=== PATIENT | female | born 1980 | race Caucasian/White ===

== ENCOUNTER → 2018-08-29 | Outpatient (REF) | payer OTHER ==
[2018-08-29 17:12] LABS: BLOOD UREA NITROGEN 9 MG/DL (7-18); CALCIUM LEVEL 9.3 MG/DL (8.5-10.1); CARBON DIOXIDE LEVEL 25 MEQ/L (21-32); CHLORIDE LEVEL 110 MEQ/L (98-107); CREATININE FOR GFR 0.95 MG/DL (0.55-1.30); GLOMERULAR FILTRATION RATE > 60.0 (>60); GLUCOSE, FASTING 86 MG/DL (70-100); POTASSIUM SERUM 4.2 MEQ/L (3.5-5.1); SODIUM LEVEL 140 MEQ/L (136-145); THYROID STIMULATING HORMONE 0.872 uIU/ML (0.358-3.740)
== END ==
LOC: M SFHCCLAY 12:08
PROVIDERS: ATTEND Family Medicine
DX: I10 Essential (primary) hypertension (principal); E03.9 Hypothyroidism, unspecified

== ENCOUNTER → 2022-02-26 | Outpatient (REF) | payer OTHER ==
[2022-02-26 17:33] LABS: HEMATOCRIT 33.1 % (36.0-47.0); HEMOGLOBIN 9.5 g/dl (12.0-15.5); MEAN CORPUSCULAR HEMOGLOBIN 21.6 pg (27.0-33.0); MEAN CORPUSCULAR HGB CONC 28.7 g/dl (32.0-36.5); MEAN CORPUSCULAR VOLUME 75.2 fl (80.0-96.0); PLATELET COUNT, AUTOMATED 298 10^3/uL (150-450); WHITE BLOOD COUNT 10.4 10^3/uL (4.0-10.0)
[2022-02-26 17:53] LABS: HEMOGLOBIN A1c 5.4 % (4.0-6.0)
[2022-02-26 18:01] LABS: ALBUMIN 3.6 G/DL (3.2-5.2); ALKALINE PHOSPHATASE 69 U/L (46-116); ALT/SGPT 23 U/L (7.0-40); AST/SGOT 20 U/L (<34); BILIRUBIN,TOTAL 0.2 MG/DL (0.3-1.2); BLOOD UREA NITROGEN 11 MG/DL (9-23); CALCIUM LEVEL 9.2 MG/DL (8.5-10.1); CARBON DIOXIDE LEVEL 22 MMOL/L (20-31); CHLORIDE LEVEL 107 MMOL/L (98-107); CHOLESTEROL LEVEL 249 MG/DL (<200); GLOMERULAR FILTRATION RATE > 60.0 (>60); GLUCOSE, FASTING 87 MG/DL (60-100); HDL CHOLESTEROL 39.5 MG/DL (>40); LDL CHOLESTEROL 175.3 MG/DL (<100); NON-HDL-C 210 MG/DL; POTASSIUM SERUM 4.3 MMOL/L (3.5-5.1); SODIUM LEVEL 139 MMOL/L (136-145); TRIGLYCERIDES LEVEL 171 MG/DL (<150)
[2022-02-26 18:07] LABS: THYROID STIMULATING HORMONE 4.498 uIU/ML (0.55-4.78)
[2022-02-26 18:08] LABS: FREE T4 1.17 NG/DL (0.89-1.76)
== END ==
LOC: M SFHCCLAY 11:13
PROVIDERS: ATTEND Nurse Practitioner Family
DX: F32.2 Major depressive disorder, single episode, severe without psychotic features (principal); E03.9 Hypothyroidism, unspecified; E78.5 Hyperlipidemia, unspecified; K21.9 Gastro-esophageal reflux disease without esophagitis; G43.109 Migraine with aura, not intractable, without status migrainosus; R73.01 Impaired fasting glucose; R04.0 Epistaxis; Z79.01 Long term (current) use of anticoagulants

== ENCOUNTER → 2022-04-16 | Outpatient (REF) | payer OTHER ==
[2022-04-16 13:54] LABS: BASO # 0.1 10^3/uL (0.0-0.2); BASO % 0.8 % (0.0-1.0); EOS # 0.3 10^3/uL (0.0-0.5); EOS % 2.5 % (0.0-3.0); HEMATOCRIT 33.4 % (36.0-47.0); HEMOGLOBIN 9.4 g/dl (12.0-15.5); LYMPH # 2.3 10^3/uL (1.5-5.0); LYMPH % 22.3 % (24.0-44.0); MEAN CORPUSCULAR HEMOGLOBIN 21.4 pg (27.0-33.0); MEAN CORPUSCULAR HGB CONC 28.1 g/dl (32.0-36.5); MEAN CORPUSCULAR VOLUME 75.9 fl (80.0-96.0); MONO # 0.7 10^3/uL (0.0-0.8); MONO % 7.1 % (2.0-8.0); NEUTROPHILS # 6.8 10^3/uL (1.5-8.5); NEUTROPHILS % 66.5 % (36.0-66.0); PLATELET COUNT, AUTOMATED 256 10^3/uL (150-450); WHITE BLOOD COUNT 10.1 10^3/uL (4.0-10.0)
[2022-04-16 14:23] LABS: FERRITIN 1.7 NG/ML (7.3-270.7)
[2022-04-16 14:24] LABS: PERCENT SATURATION 7.5 % (13.2-45.0)
[2022-04-16 14:25] LABS: FOLATE 16.18 NG/ML (>5.4)
== END ==
LOC: M SFHCCLAY 11:40
PROVIDERS: ATTEND Nurse Practitioner Family
DX: D64.9 Anemia, unspecified (principal)

== ENCOUNTER → 2022-04-22 | Outpatient (CLI) | payer OTHER | LOC: M SOG 08:08 | PROVIDERS: ATTEND Orthopaedic Surgery | DX: M54.50 Low back pain, unspecified (principal) ==

== ENCOUNTER 2022-04-27 09:34 | Outpatient (CLI) | payer OTHER ==
[~2022-04-27] VITALS: Ht 172.7 cm; Wt 120.0 kg
[2022-04-27 09:45] VITALS: BP 146/91
[2022-04-27] MEDS ORDERED: IRON SUCROSE 25 MG in NS 23.75 ML IV ONE (10:30)
[2022-04-27] MEDS ORDERED: IRON SUCROSE 475 MG in NS 250 ML IV ONE (11:45)
[2022-04-27 13:20] VITALS: BP 140/85
[2022-04-27 14:40] VITALS: BP 141/88
[2022-04-27 16:20] VITALS: BP 147/90
== END 2022-04-27 16:20 | disposition home or self-care (01) ==
LOC: M INFU 09:34
PROVIDERS: ATTEND Nurse Practitioner Family
DX: D50.9 Iron deficiency anemia, unspecified (principal)
CPT/HCPCS: 96365; 96366; J1756

== ENCOUNTER → 2022-05-06 | Outpatient (REF) | payer OTHER ==
[2022-05-06 17:32] LABS: BASO # 0.1 10^3/uL (0.0-0.2); BASO % 0.7 % (0.0-1.0); EOS # 0.2 10^3/uL (0.0-0.5); EOS % 1.7 % (0.0-3.0); HEMATOCRIT 37.8 % (36.0-47.0); LYMPH # 2.4 10^3/uL (1.5-5.0); LYMPH % 20.5 % (24.0-44.0); MEAN CORPUSCULAR HEMOGLOBIN 23.3 pg (27.0-33.0); MEAN CORPUSCULAR HGB CONC 29.1 g/dl (32.0-36.5); MEAN CORPUSCULAR VOLUME 79.9 fl (80.0-96.0); MONO # 0.7 10^3/uL (0.0-0.8); MONO % 6.1 % (2.0-8.0); NEUTROPHILS # 8.1 10^3/uL (1.5-8.5); NEUTROPHILS % 69.8 % (36.0-66.0); PLATELET COUNT, AUTOMATED 193 10^3/uL (150-450); RED BLOOD COUNT 4.73 10^6/uL (4.00-5.40); WHITE BLOOD COUNT 11.6 10^3/uL (4.0-10.0)
[2022-05-06 17:41] LABS: FERRITIN 41.8 NG/ML (7.3-270.7)
== END ==
LOC: M SFHCCLAY 09:31
PROVIDERS: ATTEND Nurse Practitioner Family
DX: D50.9 Iron deficiency anemia, unspecified (principal)

== ENCOUNTER → 2022-07-16 | Outpatient (REF) | payer OTHER ==
[2022-07-16 17:39] LABS: BASO # 0.1 10^3/uL (0.0-0.2); BASO % 0.8 % (0.0-1.0); EOS # 0.2 10^3/uL (0.0-0.5); EOS % 2.5 % (0.0-3.0); HEMATOCRIT 38.5 % (36.0-47.0); HEMOGLOBIN 11.5 g/dl (12.0-15.5); LYMPH # 2.1 10^3/uL (1.5-5.0); LYMPH % 25.6 % (24.0-44.0); MEAN CORPUSCULAR HEMOGLOBIN 25.7 pg (27.0-33.0); MEAN CORPUSCULAR HGB CONC 29.9 g/dl (32.0-36.5); MEAN CORPUSCULAR VOLUME 85.9 fl (80.0-96.0); MONO # 0.6 10^3/uL (0.0-0.8); MONO % 7.7 % (2.0-8.0); NEUTROPHILS # 5.3 10^3/uL (1.5-8.5); NEUTROPHILS % 62.8 % (36.0-66.0); PLATELET COUNT, AUTOMATED 249 10^3/uL (150-450); RED BLOOD COUNT 4.48 10^6/uL (4.00-5.40); WHITE BLOOD COUNT 8.4 10^3/uL (4.0-10.0)
[2022-07-16 18:01] LABS: FERRITIN 4.3 NG/ML (7.3-270.7); PERCENT SATURATION 7.4 % (13.2-45.0)
== END ==
LOC: M SFHCCLAY 11:21
PROVIDERS: ATTEND Nurse Practitioner Family
DX: D50.9 Iron deficiency anemia, unspecified (principal)

== ENCOUNTER → 2022-07-20 | Outpatient (CLI) | payer OTHER | LOC: M PLAIMG 08:30 | PROVIDERS: ATTEND Orthopaedic Surgery | DX: M54.50 Low back pain, unspecified (principal) ==

== ENCOUNTER 2022-07-30 10:03 | Outpatient (CLI) | payer OTHER ==
[~2022-07-30] VITALS: Ht 172.7 cm; Wt 98.5 kg
[2022-07-30 10:10] VITALS: BP 132/72
[2022-07-30 10:30] VITALS: BP 134/77
[2022-07-30] MEDS ORDERED: IRON SUCROSE 500 MG in NS 250 ML OVER 4 HRS IV ONE (10:30)
[2022-07-30 11:30] VITALS: BP 147/65
[2022-07-30 11:45] VITALS: BP 140/83
[2022-07-30 14:50] VITALS: BP 162/88
== END 2022-07-30 15:10 | disposition home or self-care (01) ==
LOC: M INFU 10:03
PROVIDERS: ATTEND Nurse Practitioner Family
DX: D50.9 Iron deficiency anemia, unspecified (principal)
CPT/HCPCS: 96365; 96366; J1756

== ENCOUNTER → 2022-12-24 | Outpatient (CLI) | payer OTHER ==
[~2022-12-24] MED LIST: ATEN25TA; CHLO125TA; CITA40TA7; CYAN-1; CYCL-707; FERR324T2; LEVO100T5; OMEP-173; SIMV40TA20; SUMA100T2; TIZA10TA; TOPI200T7; VITMTA PO; ZANA2CAP PO
== END ==
LOC: M WHC 08:09
PROVIDERS: ATTEND Nurse Practitioner Family
DX: Z12.31 Encounter for screening mammogram for malignant neoplasm of breast (principal)

== ENCOUNTER → 2023-01-19 | Outpatient (REF) | payer OTHER | LOC: M SFHCCLAY 10:17 | PROVIDERS: ATTEND Nurse Practitioner Family | DX: R05.1 Acute cough (principal) ==

== ENCOUNTER → 2023-02-17 | Outpatient (REF) | payer OTHER | LOC: M SFHCCLAY 10:52 | PROVIDERS: ATTEND Nurse Practitioner Family | DX: R05.1 Acute cough (principal) ==

== ENCOUNTER 2023-06-14 09:57 | Outpatient (CLI) | payer OTHER ==
[~2023-06-14] VITALS: Ht 172.7 cm; Wt 118.2 kg
[2023-06-14] MEDS ORDERED: diphenhydrAMINE 25MG CAP PO ONE (10:00)
[2023-06-14 10:15] VITALS: BP 131/70; O2SAT 97
[2023-06-14] MEDS: ACETAMINOPHEN TAB 650MG DOSE (2X325MG) PO ONE (10:20)
[2023-06-14] MEDS: IRON SUCROSE 300 MG in NS 250 ML OVER 90 MIN. IV ONE (10:21)
[2023-06-14 12:00] VITALS: BP 119/74; O2SAT 100
== END 2023-06-14 12:00 | disposition home or self-care (01) ==
LOC: M INFU 09:57
PROVIDERS: ATTEND Internal Medicine Medical Oncology
DX: D50.9 Iron deficiency anemia, unspecified (principal)
CPT/HCPCS: 96365; 96366; J1756

== ENCOUNTER 2023-06-21 09:30 | Outpatient (CLI) | payer OTHER ==
[~2023-06-21] VITALS: Ht 175.3 cm; Wt 125.0 kg
[2023-06-21] MEDS: ACETAMINOPHEN TAB 650MG DOSE (2X325MG) PO ONE (09:39)
[2023-06-21] MEDS: diphenhydrAMINE 25MG CAP PO ONE (09:39)
[2023-06-21] MEDS: IRON SUCROSE 300 MG in NS 250 ML OVER 90 MIN. IV ONE (09:40)
[2023-06-21 09:47] VITALS: BP 141/92; O2SAT 96
[2023-06-21 11:20] VITALS: BP 129/89; O2SAT 97
== END 2023-06-21 11:20 | disposition home or self-care (01) ==
LOC: M INFU 09:30
PROVIDERS: ATTEND Internal Medicine Medical Oncology
DX: D50.9 Iron deficiency anemia, unspecified (principal)
CPT/HCPCS: 96365; J1756

== ENCOUNTER 2023-06-28 10:40 | Outpatient (CLI) | payer OTHER ==
[~2023-06-28] VITALS: Ht 172.7 cm; Wt 125.0 kg
[2023-06-28 10:40] VITALS: BP 133/79; O2SAT 97
[~2023-06-28 10:40] MED LIST changes: +diphenhydrAMINE 25MG CAP PO ONE
[2023-06-28] MEDS: ACETAMINOPHEN TAB 650MG DOSE (2X325MG) PO ONE (10:44)
[2023-06-28] MEDS: IRON SUCROSE 300 MG in NS 250 ML OVER 90 MIN. IV ONE (10:49)
[2023-06-28 12:25] VITALS: BP 120/78; O2SAT 99
== END 2023-06-28 12:35 | disposition home or self-care (01) ==
LOC: M INFU 10:40
PROVIDERS: ATTEND Internal Medicine Medical Oncology
DX: D50.9 Iron deficiency anemia, unspecified (principal)
CPT/HCPCS: 96365; 96366; J1756

== ENCOUNTER → 2023-08-31 | Outpatient (CLI) | payer OTHER ==
[~2023-08-31] MED LIST changes: -diphenhydrAMINE 25MG CAP PO ONE
== END ==
LOC: M WHC 09:52
PROVIDERS: ATTEND Nurse Practitioner Family
DX: R10.2 Pelvic and perineal pain (principal)

== ENCOUNTER → 2024-01-03 | Outpatient (CLI) | payer OTHER | LOC: M WHC 08:17 | PROVIDERS: ATTEND Nurse Practitioner Family | DX: Z12.31 Encounter for screening mammogram for malignant neoplasm of breast (principal); R92.313 Mammographic fatty tissue density, bilateral breasts ==

== ENCOUNTER → 2024-01-05 | Outpatient (REF) | payer OTHER, MEDICAID ==
[2024-01-05 19:13] LABS: BASO # 0.1 10^3/uL (0.0-0.2); BASO % 0.7 % (0.0-1.0); EOS # 0.2 10^3/uL (0.0-0.5); EOS % 2.2 % (0.0-3.0); HEMATOCRIT 43.6 % (36.0-47.0); HEMOGLOBIN 14.1 g/dl (12.0-15.5); LYMPH # 2.9 10^3/uL (1.5-5.0); LYMPH % 28.1 % (24.0-44.0); MEAN CORPUSCULAR HEMOGLOBIN 30.4 pg (27.0-33.0); MEAN CORPUSCULAR HGB CONC 32.3 g/dl (32.0-36.5); MONO # 0.9 10^3/uL (0.0-0.8); MONO % 8.4 % (2.0-8.0); NEUTROPHILS # 6.3 10^3/uL (1.5-8.5); NEUTROPHILS % 60.2 % (36.0-66.0); PLATELET COUNT, AUTOMATED 260 10^3/uL (150-450); RED BLOOD COUNT 4.64 10^6/uL (4.00-5.40); WHITE BLOOD COUNT 10.5 10^3/uL (4.0-10.0)
[2024-01-05 19:21] LABS: HEMOGLOBIN A1c 5.3 % (4.0-6.0)
[2024-01-05 19:42] LABS: ALKALINE PHOSPHATASE 77 U/L (46-116); ALT/SGPT 35 U/L (7.0-40); AST/SGOT 13 U/L (<34); BILIRUBIN,TOTAL 0.3 MG/DL (0.3-1.2); BLOOD UREA NITROGEN 7 MG/DL (9-23); CALCIUM LEVEL 10.6 MG/DL (8.5-10.1); CARBON DIOXIDE LEVEL 28 MMOL/L (20-31); CHLORIDE LEVEL 108 MMOL/L (98-107); CHOLESTEROL LEVEL 288 MG/DL (<200); CHOLESTEROL RISK RATIO 6.92 (<5); CREATININE FOR GFR 0.69 MG/DL (0.55-1.30); GLOMERULAR FILTRATION RATE > 60.0 (>58); GLUCOSE, FASTING 81 MG/DL (60-100); HDL CHOLESTEROL 41.6 MG/DL (>40); IRON (FE) 33 UG/DL (50-170); LDL CHOLESTEROL 178.2 MG/DL (<100); NON-HDL-C 246.4 MG/DL; PERCENT SATURATION 10.7 % (13.2-45.0); POTASSIUM SERUM 4.8 MMOL/L (3.5-5.1); SODIUM LEVEL 139 MMOL/L (136-145); TOTAL IRON BINDING CAPACITY 307 UG/DL (250-425); TOTAL PROTEIN 7.3 G/DL (5.7-8.2); TRIGLYCERIDES LEVEL 341 MG/DL (<150)
[2024-01-05 19:43] LABS: FERRITIN 6.9 NG/ML (7.3-270.7); FREE T4 0.99 NG/DL (0.89-1.76); THYROID STIMULATING HORMONE 7.052 uIU/ML (0.55-4.78)
[2024-01-05 19:44] LABS: FOLATE 14.06 NG/ML (>5.4); VITAMIN B12 LEVEL 609 PG/ML (211-911)
== END ==
LOC: M SFHCCLAY 12:04
PROVIDERS: ATTEND Nurse Practitioner Family
DX: E03.9 Hypothyroidism, unspecified (principal); D50.9 Iron deficiency anemia, unspecified; I11.9 Hypertensive heart disease without heart failure; E53.8 Deficiency of other specified B group vitamins

== ENCOUNTER → 2024-05-09 | Outpatient (REF) | payer OTHER, MEDICAID ==
[2024-05-09 17:13] LABS: HEMATOCRIT 41.2 % (36.0-47.0); HEMOGLOBIN 12.7 g/dl (12.0-15.5); MEAN CORPUSCULAR HEMOGLOBIN 27.6 pg (27.0-33.0); MEAN CORPUSCULAR HGB CONC 30.8 g/dl (32.0-36.5); MEAN CORPUSCULAR VOLUME 89.6 fl (80.0-96.0); PLATELET COUNT, AUTOMATED 256 10^3/uL (150-450); WHITE BLOOD COUNT 8.6 10^3/uL (4.0-10.0)
[2024-05-09 17:18] LABS: ALBUMIN 3.9 G/DL (3.2-5.2); ALKALINE PHOSPHATASE 74 U/L (35-104); ALT/SGPT 28 U/L (7.0-40); AST/SGOT 19 U/L (<34); BILIRUBIN,TOTAL 0.2 MG/DL (0.3-1.2); BLOOD UREA NITROGEN 9 MG/DL (9-23); CALCIUM LEVEL 9.2 MG/DL (8.5-10.1); CARBON DIOXIDE LEVEL 25 MMOL/L (20-31); CHLORIDE LEVEL 108 MMOL/L (98-107); CHOLESTEROL LEVEL 213 MG/DL (<200); CHOLESTEROL RISK RATIO 5.77 (<5); CREATININE FOR GFR 0.79 MG/DL (0.55-1.30); GLOMERULAR FILTRATION RATE > 60.0 (>58); GLUCOSE, FASTING 112 MG/DL (60-100); HDL CHOLESTEROL 36.9 MG/DL (>40); IRON (FE) 45 UG/DL (50-170); LDL CHOLESTEROL 96.7 MG/DL (<100); NON-HDL-C 176.1 MG/DL; PERCENT SATURATION 17.4 % (13.2-45.0); POTASSIUM SERUM 3.7 MMOL/L (3.5-5.1); SODIUM LEVEL 141 MMOL/L (136-145); TOTAL IRON BINDING CAPACITY 258 UG/DL (250-425); TOTAL PROTEIN 7.1 G/DL (5.7-8.2); TRIGLYCERIDES LEVEL 397 MG/DL (<150)
[2024-05-09 17:22] LABS: FERRITIN 39.7 NG/ML (7.3-270.7); VITAMIN B12 LEVEL 1101 PG/ML (211-911)
== END ==
LOC: M SFHCCLAY 09:04
PROVIDERS: ATTEND Nurse Practitioner Family
DX: F32.2 Major depressive disorder, single episode, severe without psychotic features (principal); D50.9 Iron deficiency anemia, unspecified; E78.5 Hyperlipidemia, unspecified

== ENCOUNTER → 2024-07-16 | Outpatient (REF) | payer MEDICAID, OTHER ==
[~2024-07-16] MED LIST changes: -ATEN25TA; +ATEN25TA PO; -CHLO125TA; +CHLO125TA PO; -CITA40TA7; +CITA40TA7 PO; -CYAN-1; +CYAN-1 PO; -CYCL-707; +CYCL-707 PO; -LEVO100T5; +LEVO100T5 PO; -OMEP-173; +OMEP-173 PO; -SIMV40TA20; +SIMV40TA20 PO; -SUMA100T2; +SUMA100T2 PO; +TOPI-14 PO; -TOPI200T7
== END ==
LOC: M SFHCWAGY 09:56
PROVIDERS: ATTEND Obstetrics & Gynecology
DX: N93.9 Abnormal uterine and vaginal bleeding, unspecified (principal)

== ENCOUNTER → 2024-07-18 | Outpatient (REF) | payer MEDICAID, OTHER ==
[2024-07-18 12:44] LABS: BASO # 0.1 10^3/uL (0.0-0.2); BASO % 0.7 % (0.0-1.0); EOS # 0.2 10^3/uL (0.0-0.5); EOS % 1.8 % (0.0-3.0); HEMATOCRIT 44.8 % (36.0-47.0); HEMOGLOBIN 14.4 g/dl (12.0-15.5); LYMPH # 2.5 10^3/uL (1.5-5.0); LYMPH % 28.3 % (24.0-44.0); MEAN CORPUSCULAR HEMOGLOBIN 29.1 pg (27.0-33.0); MEAN CORPUSCULAR HGB CONC 32.1 g/dl (32.0-36.5); MEAN CORPUSCULAR VOLUME 90.7 fl (80.0-96.0); MONO # 0.6 10^3/uL (0.0-0.8); MONO % 6.7 % (2.0-8.0); NEUTROPHILS # 5.6 10^3/uL (1.5-8.5); NEUTROPHILS % 62.1 % (36.0-66.0); PLATELET COUNT, AUTOMATED 280 10^3/uL (150-450); RED BLOOD COUNT 4.94 10^6/uL (4.00-5.40)
[2024-07-18 12:48] LABS: THYROID STIMULATING HORMONE 3.083 uIU/ML (0.55-4.78)
[2024-07-18 12:51] LABS: FERRITIN 15.8 NG/ML (7.3-270.7)
[2024-07-18 12:52] LABS: ALBUMIN 4.1 G/DL (3.2-5.2); ALKALINE PHOSPHATASE 71 U/L (35-104); ALT/SGPT 39 U/L (7.0-40); AST/SGOT 19 U/L (<34); BILIRUBIN,TOTAL 0.2 MG/DL (0.3-1.2); BLOOD UREA NITROGEN 9 MG/DL (9-23); CARBON DIOXIDE LEVEL 26 MMOL/L (20-31); CHLORIDE LEVEL 109 MMOL/L (98-107); CHOLESTEROL LEVEL 312 MG/DL (<200); CHOLESTEROL RISK RATIO 9.23 (<5); CREATININE FOR GFR 0.79 MG/DL (0.55-1.30); GLOMERULAR FILTRATION RATE > 90.0 (>58); GLUCOSE, FASTING 115 MG/DL (60-100); HDL CHOLESTEROL 33.8 MG/DL (>40); IRON (FE) 52 UG/DL (50-170); NON-HDL-C 278.2 MG/DL; PERCENT SATURATION 20.2 % (13.2-45.0); POTASSIUM SERUM 3.6 MMOL/L (3.5-5.1); SODIUM LEVEL 144 MMOL/L (136-145); TOTAL IRON BINDING CAPACITY 257 UG/DL (250-425); TOTAL PROTEIN 7.3 G/DL (5.7-8.2); TRIGLYCERIDES LEVEL 498 MG/DL (<150)
== END ==
LOC: M SFHCCLAY 09:33
PROVIDERS: ATTEND Nurse Practitioner Family
DX: Z01.818 Encounter for other preprocedural examination (principal); F32.2 Major depressive disorder, single episode, severe without psychotic features; G43.109 Migraine with aura, not intractable, without status migrainosus; E03.9 Hypothyroidism, unspecified; K21.9 Gastro-esophageal reflux disease without esophagitis; I11.9 Hypertensive heart disease without heart failure; D50.9 Iron deficiency anemia, unspecified; N93.9 Abnormal uterine and vaginal bleeding, unspecified; E78.5 Hyperlipidemia, unspecified

== ENCOUNTER 2024-07-27 06:16 | Day surgery (SDC) | payer OTHER ==
[~2024-07-27] VITALS: Ht 172.7 cm; Wt 119.0 kg
[~2024-07-27 06:16] MED LIST changes: +ceFAZolin SOD 3 GM in DEXTROSE 5% (D5W) MINI-BAG PLU 1... IV ONE
[2024-07-27] MEDS ORDERED: LR 1,000 ML IV SCH (06:25)
[2024-07-27 06:45] LABS: HEMATOCRIT 43.3 % (36.0-47.0); HEMOGLOBIN 14.1 g/dl (12.0-15.5); MEAN CORPUSCULAR HEMOGLOBIN 29.2 pg (27.0-33.0); MEAN CORPUSCULAR HGB CONC 32.6 g/dl (32.0-36.5); MEAN CORPUSCULAR VOLUME 89.6 fl (80.0-96.0); PLATELET COUNT, AUTOMATED 307 10^3/uL (150-450); RED BLOOD COUNT 4.83 10^6/uL (4.00-5.40); WHITE BLOOD COUNT 10.9 10^3/uL (4.0-10.0)
[2024-07-27] MEDS ORDERED: ACETAMINOPHEN 1000MG/100ML IV BAG As Ordered ONE (06:46)
[2024-07-27] MEDS ORDERED: LIDOCAINE 2% 100MG/5ML SDV (FOR ANES.) As Ordered ONE (06:46)
[2024-07-27] MEDS ORDERED: propofoL 200 MG/20 ML VIAL As Ordered ONE (06:46)
[2024-07-27] MEDS ORDERED: ONDANSETRON 4MG 2ML VIAL As Ordered ONE (06:46)
[2024-07-27] MEDS ORDERED: ROCURONIUM BROMIDE 50MG/5ML VIAL As Ordered ONE (06:47)
[2024-07-27] MEDS ORDERED: SUGAMMADEX SODIUM 500 MG/5 ML VIAL As Ordered ONE (06:47)
[2024-07-27] MEDS ORDERED: KETOROLAC 30 MG/ML 1ML VIAL As Ordered ONE (06:52)
[2024-07-27] MEDS ORDERED: fentaNYL 100 MCG/2 ML INJECTION As Ordered ONE (06:52)
[2024-07-27] MEDS ORDERED: MIDAZOLAM INJ 2MG/2ML VIAL As Ordered ONE (06:52)
[2024-07-27] MEDS ORDERED: HYDROmorphone HCL 2MG/ML 1ML VIAL As Ordered ONE (06:54)
[2024-07-27] MEDS: ceFAZolin 1GM VIAL As Ordered ONE (07:53)
[2024-07-27] MEDS: ceFAZolin SOD 2 GM IV ONCE IV ONE (07:56)
[2024-07-27] MEDS ORDERED: ALBUTEROL 6.7GM INHALER **FOR ANES. CART/OMNICELL ONLY As Ordered ONE (08:06)
[2024-07-27] MEDS ORDERED: GLYCOPYRROLATE INJ 0.2 MG/ML 2 ML VIAL As Ordered ONE (08:23)
[2024-07-27] MEDS ORDERED: PHENYLephrine 500MCG 5ML (100MCG/ML) SYRINGE As Ordered ONE (08:28)
[2024-07-27] MEDS ORDERED: ePHEDrine SULFATE 25 MG/5 ML(5MG/ML) SYRINGE As Ordered ONE (08:28)
[2024-07-27] MEDS: METHYLENE BLUE 0.5% (5MG/ML) 10 ML AMP As Ordered ONE (08:43)
[2024-07-27] MEDS ORDERED: PERCOCET 5MG/325MG TAB PO PRN ×2 (09:40)
[2024-07-27] MEDS ORDERED: ONDANSETRON 4MG 2ML VIAL IV PRN (09:40)
[2024-07-27] MEDS: LR 1,000 ML IV SCH ×2 (09:40→09:50)
[2024-07-27] MEDS ORDERED: MORPHINE 4 MG/ML 1ML VIAL IV PRN (09:40)
[2024-07-27] MEDS ORDERED: PERC5TAB12 PO (09:50)
[2024-07-27] MEDS ORDERED: fentaNYL 100 MCG/2 ML INJECTION IV PRN (09:50)
[2024-07-27] MEDS ORDERED: METOCLOPRAMIDE INJ 10MG/2ML VIAL IV PRN (09:50)
[2024-07-27] MEDS ORDERED: HYDROMORPHONE HCL 0.5 MG/ 0.5 ML SYRINGE IV PRN (09:50)
[2024-07-27] MEDS ORDERED: oxyCODONE 5MG TAB PO PRN (09:50)
[2024-07-27] MEDS ORDERED: IBUP80TA PO (09:52)
[2024-07-27] MEDS ORDERED: COLA100C5 PO (09:52)
[2024-07-27] MEDS ORDERED: ONDA-83 PO (09:53)
[2024-07-27 11:15] VITALS: BP 114/58; TEMP 98; O2SAT 95
[2024-07-27 11:45] VITALS: BP 125/67; TEMP 98.4; O2SAT 96
[2024-07-27 12:15] VITALS: BP 114/61; TEMP 98.6; O2SAT 97
[2024-07-27 13:15] VITALS: BP 113/66; TEMP 98.7; O2SAT 98
[2024-07-27 14:15] VITALS: BP 120/73; TEMP 98.5; O2SAT 97
[2024-07-27] MEDS: KETOROLAC 30 MG/ML 1ML VIAL IV SCH (15:00)
[2024-07-27] MEDS ORDERED: HOME MED LIST COMPLETE! XX SCH (15:10)
[2024-07-27] MEDS ORDERED: DOCUSATE SODIUM 100MG CAPSULE PO SCH (21:00)
[2024-07-28] MEDS ORDERED: IBUPROFEN 800 MG TAB PO SCH (23:00)
== END 2024-07-27 15:00 | disposition home or self-care (01) ==
LOC: M SDC 06:16 → M PED 11:12 → M SDC 15:00
PROVIDERS: ATTEND Obstetrics & Gynecology
DX: N93.9 Abnormal uterine and vaginal bleeding, unspecified (principal); I10 Essential (primary) hypertension; E03.9 Hypothyroidism, unspecified; E78.00 Pure hypercholesterolemia, unspecified; D50.9 Iron deficiency anemia, unspecified; G47.30 Sleep apnea, unspecified; Z98.51 Tubal ligation status; F17.210 Nicotine dependence, cigarettes, uncomplicated; Z79.899 Other long term (current) drug therapy; Z79.890 Hormone replacement therapy; K21.9 Gastro-esophageal reflux disease without esophagitis
CPT/HCPCS: 36415; 58571; 81025; 85027; 86850; 86900; 86901; 88307; J0131; J0665; J0690; J1100; J1171; J1596; J1885; J2250; J2371; J2405; J3010; Q9968; S2900

== ENCOUNTER → 2024-10-02 | Outpatient (REF) | payer OTHER, MEDICAID ==
[~2024-10-02] MED LIST changes: +COLA100C5 PO; +IBUP80TA PO; +ONDA-83 PO; +PERC5TAB12 PO; -ceFAZolin SOD 3 GM in DEXTROSE 5% (D5W) MINI-BAG PLU 1... IV ONE
[2024-10-02 19:03] LABS: BASO # 0.1 10^3/uL (0.0-0.2); BASO % 0.7 % (0.0-1.0); EOS # 0.2 10^3/uL (0.0-0.5); EOS % 1.6 % (0.0-3.0); LYMPH # 3.3 10^3/uL (1.5-5.0); LYMPH % 22.6 % (24.0-44.0); MONO # 1.1 10^3/uL (0.0-0.8); MONO % 7.2 % (2.0-8.0); NEUTROPHILS # 9.9 10^3/uL (1.5-8.5); NEUTROPHILS % 67.4 % (36.0-66.0); PLATELET COUNT, AUTOMATED 259 10^3/uL (150-450)
[2024-10-02 19:08] LABS: ERYTHROCYTE SEDIMENTATION RATE 31 mm/hr (0-20)
[2024-10-02 20:02] LABS: ESTIMATED AVERAGE GLUCOSE 117.0 MG/DL (60-110)
[2024-10-02 21:58] LABS: IRON (FE) 52 UG/DL (50-170)
[2024-10-02 21:59] LABS: C REACTIVE PROTEIN QUANTITATIV 1.77 MG/DL (<1.0); PERCENT SATURATION 20.8 % (13.2-45.0)
[2024-10-02 22:04] LABS: FREE T4 1.65 NG/DL (0.89-1.76)
[2024-10-02 22:39] LABS: ALT/SGPT 38 U/L (7.0-40); AST/SGOT 24 U/L (<34); CALCIUM LEVEL 9.7 MG/DL (8.5-10.1); CARBON DIOXIDE LEVEL 26 MMOL/L (20-31); CHLORIDE LEVEL 94 MMOL/L (98-107); CREATININE FOR GFR 1.03 MG/DL (0.55-1.30); GLOMERULAR FILTRATION RATE 69.6 (>58); POTASSIUM SERUM 2.8 MMOL/L (3.5-5.1); SODIUM LEVEL 137 MMOL/L (136-145); VITAMIN B12 LEVEL > 2000 PG/ML (211-911)
== END ==
LOC: M SFHCCLAY 13:50
PROVIDERS: ATTEND Physician Assistant
DX: R20.8 Other disturbances of skin sensation (principal)

== ENCOUNTER → 2025-01-03 | Outpatient (CLI) | payer OTHER | LOC: M WHC 11:59 | PROVIDERS: ATTEND Nurse Practitioner Family | DX: Z12.31 Encounter for screening mammogram for malignant neoplasm of breast (principal); R92.313 Mammographic fatty tissue density, bilateral breasts; Z80.3 Family history of malignant neoplasm of breast ==